=== PATIENT | male | born 1950 | race Caucasian/White ===

== ENCOUNTER 2021-01-17 09:01 | Emergency (ER) | payer OTHER ==
[~2021-01-17] VITALS: Ht 180.3 cm; Wt 90.7 kg
[2021-01-17 11:34] LABS: RED BLOOD COUNT 4.58 M/UL (4.20-5.50); WHITE BLOOD COUNT 5.2 K/UL (4.5-11.0)
[2021-01-17 11:57] LABS: BUN/CREATININE RATIO 20 (0-10)
== END 2021-01-17 13:10 | disposition home or self-care (01) ==
LOC: ER1 09:01
PROVIDERS: Physician Assistant
DX: Z23 Encounter for immunization (principal); U07.1 COVID-19; E11.9 Type 2 diabetes mellitus without complications; I10 Essential (primary) hypertension; J44.9 Chronic obstructive pulmonary disease, unspecified
CPT/HCPCS: 80053; 85025; 99283; M0243